=== PATIENT | male | born 1930 | race Caucasian/White ===

== ENCOUNTER 2018-07-12 15:02 | Emergency (ER) | payer MEDICARE ==
[~2018-07-12] VITALS: Ht 160 cm; Wt 74.8 kg
--- NOTE | ~2018-07-12 | EKG ---
[place], [place] ELECTROCARDIOGRAM REPORT NAME: CHRISTOPHER NORTON SR UNIT #: [id number] ROOM: DOCTOR: EPIPHANY DRAFT REPORT BIRTHDATE: [birth year] [facility] Test Date: 2018-07-12 Test Time: 17:01:06 Pat Name: CHRISTOPHER NORTON Department: Room: Gender: Schedule Checker: EKG.J : 1930 Requested By: TORIE GAXIOLA Order Number: [id number] Reading MD: Dale Alvarado MD Measurements Intervals [place] Rate: 91 P: 68 IN: 162 QRS: 68 QRSD: 119 T: 49 QT: 354 QTc: 436 Interpretive Statements Sinus rhythm Ventricular trigeminy Incomplete right bundle branch block Low voltage, extremity leads Electronically Signed On 07-13-2018 9:17:04 PDT by Dale Alvarado MD CM:EKGRPT:ELECTROCARDIOGRAM REPORT 1701 [id number] TORIE GAXIOLA EPIPHANY DRAFT REPORT TORIE GAXIOLA
[~2018-07-12 15:02] MED LIST: ASPIR-TRIN325 MG PO; ATENOLOL25 MG PO; GLYBURIDE5 MG PO; ISORDIL20 MG PO; METFORMIN HCL500 M1 PO; ZOCOR20 MG PO
[2018-07-12 17:05] LABS: HEMATOCRIT 42.6 % (42.0-52.0); HEMOGLOBIN 13.9 g/dl (14.0-18.0); MEAN CORPUSCULAR HGB 28.7 pg (27.0-31.0); MEAN CORPUSCULAR HGB CONC 32.6 g/dl (33.0-37.0); MEAN PLATELET VOLUME 9.6 fl (9.6-12.3); PLATELET COUNT AUTOMATED 271 10*3/uL (130-400); RED BLOOD COUNT 4.84 10*6/uL (4.50-5.90); RED CELL DISTRI WIDTH 13.6 % (0-14.5); WHITE BLOOD COUNT 15.6 10*3/uL (4.8-10.8)
[2018-07-12 17:26] LABS: ALBUMIN 3.9 gm/dl (3.1-4.5); ALKALINE PHOSPHATASE 70 U/L (45-117); BUN 13 mg/dl (7-24); CHLORIDE 100 mmol/L (98-107); CREATININE 0.91 mg/dL (0.70-1.30); POTASSIUM 4.7 mmol/L (3.5-5.1); SGOT/AST 26 IU/L (3-35); SGPT/ALT 19 U/L (12-78); SODIUM 134 mmol/L (136-145); TOTAL PROTEIN 7.4 gm/dL (6.4-8.2)
[2018-07-12 17:28] LABS: TOTAL CELLS COUNTED 100 #CELLS
[2018-07-12 17:29] LABS: PLATELET SUFFICIENCY NORMAL (NORMAL)
[2018-07-12 17:30] LABS: ACT PARTIAL THROMBO TIME 22.3 SECONDS (20.8-31.5); TROPONIN I < 0.015 ng/ml (<0.045)
[2018-07-12 17:45] VITALS: BP 195/93
== END 2018-07-12 18:16 | disposition short-term general hospital (02) ==
LOC: ED 15:02
PROVIDERS: Nurse Practitioner Family
DX: S72.011A Unspecified intracapsular fracture of right femur, initial encounter for closed fracture (principal); S50.311A Abrasion of right elbow, initial encounter; S80.211A Abrasion, right knee, initial encounter; G93.89 Other specified disorders of brain; Z79.899 Other long term (current) drug therapy; Z79.82 Long term (current) use of aspirin; Z95.5 Presence of coronary angioplasty implant and graft; W01.198A Fall on same level from slipping, tripping and stumbling with subsequent striking against other object, initial encounter; Y93.89 Activity, other specified; Y92.89 Other specified places as the place of occurrence of the external cause; Y99.9 Unspecified external cause status